=== PATIENT | male | born 1970 | race Caucasian/White ===

== ENCOUNTER 2017-08-07 02:09 | Emergency (ER) | payer MEDICAID, OTHER ==
[2017-08-07] MEDS ORDERED: Ketorolac 60 MG/2 ML SDV IM ONE (02:46)
--- NOTE | 2017-08-07 02:46 | EDM.PDOC ---
ED HPI GENERAL MEDICAL PROBLEM - General Chief Complaint: General Stated Complaint: RIB PAIN LEFT SIDE Time Seen by Provider: 08/07/17 03:42 - History of Present Illness INITIAL COMMENTS - FREE TEXT/NARRATIVE: HISTORY AND PHYSICAL: History of present illness: Patient is 47-year-old white male presents with a left rib injury this occurred when he fell off a bench onto a paint can he denies other trauma concern Review of systems: As per history of present illness and below otherwise all systems reviewed and negative. Past medical history: As per history of present illness and as reviewed below otherwise noncontributory. Surgical history: As per history of present illness and as reviewed below otherwise noncontributory. Social history: No reported history of drug or alcohol abuse. Family history: As per history of present illness and as reviewed below otherwise noncontributory. Physical exam: HEENT: Atraumatic, normocephalic, pupils reactive, negative for conjunctival pallor or scleral icterus, mucous membranes moist, throat clear, neck supple, nontender, trachea midline. Lungs: Clear to auscultation, breath sounds equal bilaterally, tenderness with ecchymosis in the left lower posterior lateral rib area with tenderness to palpation no crepitation Heart: S1S2, regular, negative for clicks, rubs, or JVD. Abdomen: Soft, nondistended, nontender. Negative for masses or hepatosplenomegaly. Negative for costovertebral tenderness. Pelvis: Stable nontender. Genitourinary: Deferred. Rectal: Deferred. Extremities: Atraumatic, negative for cords or calf pain. Neurovascular unremarkable. Neuro: Awake, alert, oriented. Cranial nerves II through XII unremarkable. Cerebellum unremarkable. Motor and sensory unremarkable throughout. Exam nonfocal. Diagnostics: Chest x-ray with left ribs UA Therapeutics: Toradol 60 mg IM Impression: #1 left rib injury Definitive disposition and diagnosis as appropriate pending reevaluation and review of above. Left Thoracic Pain Score (Numeric/FACES): 9 - Related Data Allergies Allergy/AdvReac Type Severity Reaction Status Date / Time No Known Allergies Allergy Verified 08/07/17 02:16 Home Meds: Home Meds . [No Known Home Meds] 08/07/17 [History] Past Medical History HEENT History: Reports: None Cardiovascular History: Reports: None Respiratory History: Reports: None Gastrointestinal History: Reports: None Genitourinary History: Reports: None Neurological History: Reports: None Psychiatric History: Reports: None Dermatologic History: Reports: None - Infectious Disease History Infectious Disease History: Reports: None - Past Surgical History HEENT Surgical History: Reports: None Cardiovascular Surgical History: Reports: None GI Surgical History: Reports: None Musculoskeletal Surgical History: Reports: Other (See Below) Other Musculoskeletal Surgeries/Procedures:: 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 ED EXAM, GENERAL - Physical Exam Exam: See Below (See dictation) Course - Vital Signs Last Recorded V/S: Last Vital Signs Temp 36.6 C 08/07/17 02:17 Pulse 81 08/07/17 02:17 Resp 16 08/07/17 02:17 BP 171/102 H 08/07/17 02:17 Pulse Ox 99 08/07/17 02:17 - Orders/Labs/Meds Orders: Active Orders 24 hr Category Date Time Status Ribs 2V w Chest Lt [CR] Stat Exams 08/07/17 02:17 Taken Labs: Laboratory Tests 08/07/17 Range/Units 02:29 Urine Color YELLOW Urine Appearance CLEAR Urine pH 6.0 (5.0-8.0) Ur Specific [place] <= 1.005 (1.001-1.035) Urine Protein NEGATIVE (NEGATIVE) mg/dL Urine Glucose (UA) NEGATIVE (NEGATIVE) mg/dL Urine Ketones NEGATIVE (NEGATIVE) mg/dL Urine Occult Blood MODERATE (NEGATIVE) Urine Nitrite NEGATIVE (NEGATIVE) Urine Bilirubin NEGATIVE (NEGATIVE) Urine Urobilinogen 0.2 (<2.0) EU/dL Ur Leukocyte Esterase NEGATIVE (NEGATIVE) Urine RBC 5-10 (0-2/HPF) Urine WBC 0-1 (0-5/HPF) Ur Epithelial Cells RARE (NONE-FEW) Urine Bacteria RARE (NEGATIVE) Meds: Medications Discontinued Medications Generic Name Dose Route Start Last Admin Trade Name Freq PRN Reason Stop Dose Admin Hydrocodone Bitart/Acetaminophen 1 tab 08/07/17 03:34 08/07/17 03:39 Covel 325-10 Mg PO 08/07/17 03:35 1 tab ONETIME ONE Administration Ketorolac Tromethamine 60 mg 08/07/17 02:46 08/07/17 02:49 Toradol IM 08/07/17 02:47 60 mg ONETIME ONE Administration Departure - Departure Time of Disposition: 03:42 Disposition: Home, Self-Care 01 Condition: Good Clinical Impression: Rib fracture - Discharge Information Referrals: PCP,None [Primary Care Provider] - Forms: ED Department Discharge Additional Instructions: The following information is given to patients seen in the emergency department who are being discharged to home. This information is to outline your options for follow-up care. We provide all patients seen in our emergency department with a follow-up referral. The need for follow-up, as well as the timing and circumstances, are variable depending upon the specifics of your emergency department visit. If you don't have a primary care physician on staff, we will provide you with a referral. We always advise you to contact your personal physician following an emergency department visit to inform them of the circumstance of the visit and for follow-up with them and/or the need for any referrals to a consulting specialist. The emergency department will also refer you to a specialist when appropriate. This referral assures that you have the opportunity for followup care with a specialist. All of these measure are taken in an effort to provide you with optimal care, which includes your followup. Under all circumstances we always encourage you to contact your private physician who remains a resource for coordinating your care. When calling for followup care, please make the office aware that this follow-up is from your recent emergency room visit. If for any reason you are refused follow-up, please contact the [facility] emergency department at and asked to speak to the emergency department charge nurse. Hydrocodone as prescribed follow-up primary medical doctor 1-2 days return as needed as discussed - My Orders Last 24 Hours: My Active Orders 08/07/17 02:17 Ribs 2V w Chest Lt [CR] Stat - Assessment/Plan Last 24 Hours: My Active Orders 08/07/17 02:17 Ribs 2V w Chest Lt [CR] Stat
[2017-08-07] MEDS ORDERED: Acetaminophen/HYDROcodone 325-10 MG Tab PO ONE (03:34)
[2017-08-07 04:03] VITALS: BP 147/98
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
== END 2017-08-07 04:05 | disposition home or self-care (01) ==
LOC: MW.ED 02:09
DX: S22.32XA Fracture of one rib, left side, initial encounter for closed fracture (principal); Z89.022 Acquired absence of left finger(s); W08.XXXA Fall from other furniture, initial encounter
CPT/HCPCS: 71101; 81001; 96372; 99283; A9270; J1885; 99284

== ENCOUNTER 2018-08-16 11:30 | Emergency (ER) | payer BC, MEDICAID ==
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
[2018-08-16 11:41] VITALS: BP 143/99
[2018-08-16] MEDS ORDERED: Ketorolac 60 MG/2 ML SDV IM ONE (12:08)
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
== END 2018-08-16 14:13 | disposition home or self-care (01) ==
LOC: MW.ED 11:30
DX: S20.211A Contusion of right front wall of thorax, initial encounter (principal); S00.511A Abrasion of lip, initial encounter; S00.411A Abrasion of right ear, initial encounter; Y04.0XXA Assault by unarmed brawl or fight, initial encounter
CPT/HCPCS: 70450; 70486; 71100; 96372; 99284; J1885

== ENCOUNTER 2019-04-30 10:09 | Day surgery (SDC) | payer BC ==
[~2019-04-30 10:09] MED LIST: Lactated Ringers 1,000 ML IV SCH
--- NOTE | 2019-04-30 11:11 | PCM.PREANE ---
Preanesthetic Assessment - Anesthesia/Transfusion/Family Hx Anesthesia History: Prior Anesthesia Without Reaction Other Type of Anesthesia Reaction Comment: pt adopted, family hx unknown Family History of Anesthesia Reaction: No Transfusion History: No Prior Transfusion(s) Intubation History: Unknown - Review of Systems General: No Symptoms Pulmonary: No Symptoms Cardiovascular: No Symptoms Gastrointestinal: Nausea, Other (change in bowel habits) Neurological: No Symptoms Other: Reports: None - Physical Assessment Height: 5 ft 8 in Weight: 75.75 kg ASA Class: 2 Mental Status: Alert & Oriented x3 Airway Class: Mallampati = 2 Dentition: Reports: Broken Tooth/Teeth (chipped front upper tooth), Missing Tooth/Teeth (frony upper x1 (left)) Thyro-Mental Finger Breadths: 3 Mouth Opening Finger Breadths: 3 ROM/Head Extension: Full Lungs: Clear to Auscultation, Normal Respiratory Effort Cardiovascular: Regular Rate, Regular Rhythm - Allergies Allergies/Adverse Reactions: Allergies Allergy/AdvReac Type Severity Reaction Status Date / Time No Known Allergies Allergy Verified 04/27/19 10:53 - Blood Blood Available: No - Anesthesia Plan Pre-Op Medication Ordered: None - Acknowledgements Anesthesia Type Planned: MAC Pt an Appropriate Candidate for the Planned Anesthesia: Yes Alternatives and Risks of Anesthesia Discussed w Pt/Guardian: Yes Pt/Guardian Understands and Agrees with Anesthesia Plan: Yes PreAnesthesia Questionnaire HEENT History: Reports: Other (See Below) Other HEENT History: wears glasses Cardiovascular History: Reports: None Respiratory History: Reports: None Gastrointestinal History: Reports: GERD Genitourinary History: Reports: Renal Calculus Musculoskeletal History: Reports: Other (See Below) Neurological History: Reports: None Psychiatric History: Reports: None Endocrine/Metabolic History: Reports: None Hematologic History: Reports: None Immunologic History: Reports: None Oncologic (Cancer) History: Reports: None Dermatologic History: Reports: None - Infectious Disease History Infectious Disease History: Reports: None - Past Surgical History Head Surgeries/Procedures: Reports: None HEENT Surgical History: Reports: None Cardiovascular Surgical History: Reports: None Respiratory Surgical History: Reports: None GI Surgical History: Reports: None Male Surgical History: Reports: None Endocrine Surgical History: Reports: None Neurological Surgical History: Reports: None Musculoskeletal Surgical History: Reports: Other (See Below) Other Musculoskeletal Surgeries/Procedures:: 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
[2019-04-30] MEDS ORDERED: Midazolam 1 MG/ML 2 ML SDV ONE (11:44)
[2019-04-30] MEDS ORDERED: fentaNYL 100 MCG/2 ML SDV ONE (11:44)
[2019-04-30] MEDS ORDERED: Propofol 200 MG/20 ML SDV ONE (11:44)
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
--- NOTE | 2019-04-30 13:55 | PCM48HPAN ---
Post Anesthesia Note - EVALUATION WITHIN 48HRS OF ANESTHETIC Vital Signs in Normal Range: Yes Patient Participated in Evaluation: Yes Respiratory Function Stable: Yes Airway Patent: Yes Cardiovascular Function Stable: Yes Hydration Status Stable: Yes Pain Control Satisfactory: Yes Nausea and Vomiting Control Satisfactory: Yes Mental Status Recovered: Yes Resp Rate: 16
[2019-04-30 15:02] VITALS: BP 130/67
--- NOTE | 2019-04-30 17:15 | OR ---
SURGEON: Gavin Warren MD DATE OF PROCEDURE: 04/30/2019 PREOPERATIVE DIAGNOSES: 1. Bright red blood per rectum. 2. Abdominal pain. POSTOPERATIVE DIAGNOSES: Esophagogastroduodenoscopy diagnoses: 1. Duodenal polyp. 2. Acid reflux. Colonoscopy diagnosis: Hemorrhoids. PROCEDURE PERFORMED: Esophagogastroduodenoscopy with biopsy. DESCRIPTION OF PROCEDURE: EGD: The patient was taken to the endoscopy room, and with the CANE STRIPPER, Diprivan was administered. A well-lubricated EGD scope was gently inserted through the oropharynx, down the esophagus, passing through the gastroesophageal junction, into the stomach. The mucosa was examined upon the passage. Any etiology will be noted. Once in the stomach, we continued to advance to the distal antrum, passed through the pylorus into the second portion of the duodenum. Again, the mucosa was examined for any abnormality and etiology. The scope was then retrieved back to the stomach and then retroflexed to look at the fundus of the stomach. If a biopsy was indicated, we will biopsy the antrum, body, and gastroesophageal junction. The air will be sucked out while the scope is retrieved to reduce the patient's discomfort. The patient tolerated the procedure well. There were no intraoperative complications. Dr. Warren was present through the whole procedure. Prior to surgery, a time-out had been called, the patient identified, procedure identified and antibiotic administered. Colonoscopy with random biopsy: The patient was taken to the endoscopy room. A time out was called, patient identified, and procedure identified. Diprivan was then administrated. Patient went from awake to sleep, hearing doctor talking or door closing is normal. Perineum inspection and digital examination were then performed. A well-lubricated colonoscope was gently inserted through the rectum, advanced past the rectosigmoid junction, the descending colon, splenic flexure, transverse colon, hepatic flexure, ascending colon, arrived to the cecum. Cecum was identified as dictated in the finding. Then the scope was carefully withdrawn while attention was paid to the mucosal surface for any abnormality. Air will be sucked out during the scope withdrawal. At the rectum, retroflexed to examine any rectal diseases, fistula or hemorrhoids. During mucosal examination, biopsy performed. Patient tolerated procedure well. There were no intraoperative complications, and Dr. Warren was present throughout the whole procedure. FINDINGS: EGD findings: 1. The patient is easily sedated with CANE STRIPPER and Diprivan. The patient is soundly snoring. 2. Oropharynx and proximal esophagus are free of disease, stricture, inflammation. Distal esophagus at GE junction at 40 shows very mild salmon- colored change suggestive of acid reflux mild. Stomach rugae are normal in appearance and antrum is fine. No blood, ulcer, bile observed. Duodenum was grossly normal except a small area passed the duodenal bulb. There is a small polyp about the size of probably about 8 to 9 mm. Biopsy done once. Scope retrieved back to the stomach, retroflexed look at the fundus of stomach, there was no hiatal hernia. Biopsy done at antrum, body, GE junction at 40 and sucked out the gas while scope pulling out. Colonoscopy findings: 1. The patient is easily sedated with CANE STRIPPER and Diprivan. The patient is soundly snoring. 2. Bowel prep is average to above average, very little liquid stool, no semi- formed stool. 3. Colon is rather straightforward. Cecum indicated by ileocecal fold, one-to- one indentation, appendiceal orifice, and light emittance. Mucosa examined upon scope pulling out with some irrigation. The patient does not have polyp, diverticulosis, growth, mass, inflammation, stricture, AV malformation, ulceration, bleeding, none of those. The patient has mild internal hemorrhoids and mild external hemorrhoids. Random biopsy was done for rectal bleeding and if all come back negative, the patient would benefit from repeat colonoscopy in 10 years from today or if clinically indicated otherwise. ERIKA / RUBIO /[id number] JOSÉ MIGUEL
== END 2019-04-30 14:15 | disposition home or self-care (01) ==
LOC: MW.SDS 10:09
PROVIDERS: ATTEND Surgery
DX: K62.5 Hemorrhage of anus and rectum (principal); R19.4 Change in bowel habit; R10.9 Unspecified abdominal pain; K64.8 Other hemorrhoids; K64.4 Residual hemorrhoidal skin tags; K31.7 Polyp of stomach and duodenum; K21.9 Gastro-esophageal reflux disease without esophagitis; K31.89 Other diseases of stomach and duodenum; K22.8 Other specified diseases of esophagus; K63.89 Other specified diseases of intestine; F17.210 Nicotine dependence, cigarettes, uncomplicated
CPT/HCPCS: 43239; 45380; J2001; J2250; J2704; J3010; J7120; 00813; 88305; 88312

== ENCOUNTER 2020-06-28 17:21 | Emergency (ER) | payer SELFPAY ==
[2020-06-28] MEDS ORDERED: Morphine 10 MG/ML Syringe IM ONE (17:50)
[2020-06-28] MEDS ORDERED: Ketorolac 60 MG/2 ML SDV IM ONE (17:51)
[2020-06-28] MEDS ORDERED: Ondansetron 4 MG Tab.DIS PO ONE (17:51)
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
--- NOTE | 2020-06-28 18:52 | CT ---
CT lumbar spine Technique: Multiple axial sections were obtained from the mid T12 level inferiorly through the L5-S1 disc. Reconstructed coronal and sagittal images were reviewed. Comparison: No prior lumbar spine imaging is available. Findings: Anterior wedge deformity within the superior endplate of L1 is seen. Fracturing is noted within the anterior lip of the superior L1 vertebral body is noted. Posterior arch is intact. No additional fracture is appreciated. No abnormal subluxation is seen. Posterior discs are preserved with no traumatic disc herniation. Impression: 1. Mild anterior wedging of the superior endplate of L1 with acute fracture involving the anterior lip of L1. 2. No other acute finding is seen on CT study of the lumbar spine. Diagnostic code #3 This report was dictated in MDT
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
[2020-06-28 20:28] VITALS: BP 126/80; PULSE 66
== END 2020-06-28 20:28 | disposition home or self-care (01) ==
LOC: MW.ED 17:21
DX: S32.018A Other fracture of first lumbar vertebra, initial encounter for closed fracture (principal); F17.210 Nicotine dependence, cigarettes, uncomplicated; V86.56XA Driver of dirt bike or motor/cross bike injured in nontraffic accident, initial encounter
CPT/HCPCS: 72131; 96372; 99284; A9270; J1885; J2270; 99283

== ENCOUNTER 2021-08-16 15:25 | Emergency (ER) | payer SELFPAY ==
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
[2021-08-16 17:12] VITALS: BP 102/73; PULSE 58
== END 2021-08-16 17:03 | disposition home or self-care (01) ==
LOC: MW.ED 15:25
DX: R22.1 Localized swelling, mass and lump, neck (principal); Z72.0 Tobacco use
CPT/HCPCS: 99283